=== PATIENT | female | born 2000 | race Two or more races ===

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

== ENCOUNTER 2018-01-11 15:48 | Emergency (ER) | payer OTHER ==
[2018-01-11 15:59] VITALS: RESP 18; TEMP 98.3; BMI 32.3
--- NOTE | 2018-01-11 16:06 | ED PDOC ---
Arrival/HPI - General Historian: Patient - History of Present Illness Narrative History of Present Illness (Text): 01/11/18 16:02 17yo female with no pmhx who present with complaint nausea, nonbloody/bilious vomiting x2 and diarrhea x 1 since early this morning. Patient states everyone in her house had similar symptom. States she wasn't able to keep down the cracker and soda she had earlier. She denies abdominal pain, fever, chills, urinary symptoms, melena, hematemesis, hematuira, chest pain, any other complaint. <Diru,Happiness A - Last Filed: 01/11/18 17:41> Past Medical History - Provider Review Nursing Documentation Reviewed: Yes <Diru,Happiness A - Last Filed: 01/11/18 17:41> Family/Social History - Physician Review Nursing Documentation Reviewed: Yes Family/Social History: Unknown Family HX <Diru,Happiness A - Last Filed: 01/11/18 17:41> Allergies/Home Meds <Diru,Happiness A - Last Filed: 01/11/18 17:41> <TolerBradford thornton - Last Filed: 01/11/18 19:01> Allergies/Adverse Reactions: Allergies No Known Allergies Allergy (Verified 01/11/18 16:07) Review of Systems - Physician Review All systems were reviewed & negative as marked: Yes - Review of Systems Constitutional: Normal Eyes: Normal ENT: Normal Respiratory: Normal Cardiovascular: Normal Gastrointestinal: Nausea, Vomiting. absent: Abdominal Pain, Constipation, Diarrhea, Hematochezia, Hematemesis Genitourinary Female: Normal Musculoskeletal: Normal Skin: Normal Neurological: Normal Endocrine: Normal Hemo/Lymphatic: Normal Psychiatric: Normal <Diru,Happiness A - Last Filed: 01/11/18 17:41> Physical Exam Vital Signs Reviewed: Yes Vital Signs Temp Pulse Resp BP Pulse Ox 01/11/18 15:54 98.3 F 86 18 93/44 L 100 Temperature: Afebrile Blood Pressure: Normal Pulse: Regular Respiratory Rate: Normal Appearance: Positive for: Well-Appearing, Non-Toxic, Comfortable Pain Distress: None Mental Status: Positive for: Alert and Oriented X 3 - Systems Exam Head: Present: Atraumatic, Normocephalic Pupils: Present: PERRL Extroacular Muscles: Present: EOMI Conjunctiva: Present: Normal Mouth: Present: Moist Mucous Membranes Neck: Present: Normal Range of Motion Respiratory/Chest: Present: Clear to Auscultation, Good Air Exchange. No: Respiratory Distress, Accessory Muscle Use Cardiovascular: Present: Regular Rate and Rhythm, Normal S1, S2. No: Murmurs Abdomen: Present: Normal Bowel Sounds, Other (Soft). No: Tenderness, Distention, Peritoneal Signs, Rebound, Guarding, McBurney's Point Tender, Rovsing's Sign Present Back: Present: Normal Inspection Upper Extremity: Present: Normal Inspection. No: Cyanosis, Edema Lower Extremity: Present: Normal Inspection. No: Edema Neurological: Present: GCS=15, CN II-XII Intact, Speech Normal Skin: Present: Warm, Dry, Normal Color. No: Rashes Psychiatric: Present: Alert, Oriented x 3, Normal Insight, Normal Concentration <Diru,Happiness A - Last Filed: 01/11/18 17:41> Vital Signs Temp Pulse Resp BP Pulse Ox 01/11/18 17:26 76 18 102/78 98 01/11/18 15:54 98.3 F 86 18 93/44 L 100 <Tolerico,Bradford - Last Filed: 01/11/18 19:01> Medical Decision Making ED Course and Treatment: 01/11/18 17:41 PT present to ED for stated history. she was hemodynamically stable and in no distress in ED. Labs 1L NS, Zofran UA will reassess On r evaluation pt was not in any distress. She was able to tolerate PO challenge. Lab was unremarkable. She had small Leuk in her UA without WBC and with epithelial cells likely contaminated. She was DC and advised to follow BRAT diet and her PMD. TRT ED for any worsening symptoms. <Diru,Happiness A - Last Filed: 01/11/18 17:41> - Lab Interpretations Lab Results: 01/11/18 16:07 01/11/18 16:07 Lab Results 01/11/18 16:07: Sodium 138, Potassium 4.4, Chloride 105, Carbon Dioxide 26, Anion Gap 11, BUN 18, Creatinine 0.6 L, Est GFR ( Amer) > 60, Est GFR (Non-Af Amer) > 60, Random Glucose 97, Calcium 9.2, Magnesium 1.7, Total Bilirubin 0.9, AST 32, ALT 34, Alkaline Phosphatase 64, Total Protein 7.3, Albumin 4.1, Globulin 3.2, Albumin/Globulin Ratio 1.3, Lipase 18 L 01/11/18 16:07: WBC 7.9, RBC 4.94, Hgb 14.4, Hct 42.2, MCV 85.4, MCH 29.1, MCHC 34.1, RDW 12.7, Plt Count 183, MPV 10.7, Gran % 89.8 H, Lymph % (Auto) 5.5 L, [place] % (Auto) 4.6, Eos % (Auto) 0.1 L, Baso % (Auto) 0.0, Gran # 7.08 H, Lymph # (Auto) 0.4 L, [place] # (Auto) 0.4, Eos # (Auto) 0.0, Baso # (Auto) 0.00 01/11/18 15:50: Urine Color yellow, Urine Appearance Clear, Urine pH 6.0, Ur Specific [place] >= 1.030, Urine Protein Negative, Urine Glucose (UA) Negative, Urine Ketones Negative, Urine Blood Negative, Urine Nitrate Negative, Urine Bilirubin Negative, Urine Urobilinogen 0.2, Ur Leukocyte Esterase Small H, Urine RBC TEST NOT PERFORMED, Urine WBC 2 - 5, Ur Epithelial Cells Many 01/11/18 04:45: PT 14.0 H, INR 1.22, APTT 30.9 - Medication Orders Current Medication Orders: Discontinued Medications Sodium Chloride (Sodium Chloride 0.9%) 1,000 mls @ 1,000 mls/hr IV .Q1H STA Stop: 01/11/18 17:06 Last Admin: 01/11/18 16:20 Dose: 1,000 mls/hr eMAR Start Stop Document 01/11/18 16:20 GMD (Rec: 01/11/18 17:20 GMD [id number]) Intravenous Solution Start Date 01/11/18 Start Time 16:20 End Date 01/11/18 End time 17:20 Total Infusion Time 60 Ondansetron HCl (Zofran Inj) 4 mg IVP STAT STA Stop: 01/11/18 16:08 Last Admin: 01/11/18 16:20 Dose: 4 mg IVP Administration Document 01/11/18 16:20 GMD (Rec: 01/11/18 17:20 GMD [id number]) Charges for Administration # of IVP Administrations 1 <Bradford Esquivel - Last Filed: 01/11/18 19:01> - PA / CROCHETER HAND / Resident Statement / has reviewed & agrees with the documentation as recorded. <Bradford Esquivel - Last Filed: 01/11/18 19:01> Disposition/Present on Arrival - Present on Arrival Any Indicators Present on Arrival: No History of DVT/PE: No History of Uncontrolled Diabetes: No Urinary Catheter: No History of Decub. Ulcer: No History Surgical Site Infection Following: None - Disposition Have Diagnosis and Disposition been Completed?: Yes Disposition Time: 17:15 Patient Plan: Discharge <Acacia Mijares - Last Filed: 01/11/18 17:41> <Bradford Esquivel - Last Filed: 01/11/18 19:01> - Disposition Diagnosis: Vomiting Disposition: HOME/ ROUTINE Condition: STABLE Discharge Instructions (ExitCare): Nausea and Vomiting, Adult Additional Instructions: Follow BRAT diet and follow up with your Doctor Return to ED for any new or worsening symptoms Prescriptions: Ondansetron ODT [Zofran ODT] 4 mg PO Q6 #7 odt Referrals: Clover Bauer MD [Medical Doctor] - Follow up with primary
[2018-01-11] MEDS ORDERED: Sodium Chloride 0.9% 1,000 ML IV STA (16:07)
[2018-01-11 16:15] LABS: URINE BILIRUBIN NEGATIVE (NEGATIVE); URINE BLOOD NEGATIVE (NEGATIVE); URINE GLUCOSE (UA) NEGATIVE (NEGATIVE); URINE LEUKOCYTE ESTERASE SMALL Leu/uL (NEGATIVE); URINE PROTEIN NEGATIVE mg/dL (<30 mg/dL); URINE UROBILINOGEN 0.2 E.U./dL (<1 E.U./dL)
[2018-01-11 16:20] LABS: URINE APPEARANCE CLEAR (CLEAR)
[2018-01-11 16:31] LABS: URINE EPITHELIAL CELLS MANY /hpf (0-5)
[2018-01-11 16:51] LABS: EOS % 0.1 % (1.5-5.0); GRAN # 7.08 (1.4-6.5); GRAN % 89.8 % (50.0-68.0); HEMOGLOBIN 14.4 g/dL (12.0-16.0); LYMPH # 0.4 (1.2-3.4); LYMPH % 5.5 % (22.0-35.0); MEAN CELL VOLUME 85.4 fl (80.0-105.0); MEAN CORPUSCULAR HEMOGLOBIN 29.1 pg (25.0-35.0); MEAN CORPUSCULAR HGB CONC 34.1 g/dl (31.0-37.0); MEAN PLATELET VOLUME 10.7 fl (7.0-11.0); MONO # 0.4 (0.1-0.6); MONO % 4.6 % (1.0-6.0); RBC 4.94 10^6/uL (3.5-6.1); RED CELL DISTRIBUTION WIDTH 12.7 % (11.5-14.5); WHITE BLOOD COUNT 7.9 10^3/uL (4.5-11.0)
[2018-01-11 17:00] LABS: INR 1.22
[2018-01-11 17:01] LABS: PARTIAL THROMBOPLASTIN TIME 30.9 Seconds (25.1-36.5)
[2018-01-11 17:03] LABS: ALB/GLOB RATIO 1.3 (1.1-1.8); ALBUMIN 4.1 g/dL (3.0-4.8); ALT/SGPT 34 U/L (7-56); AST/SGOT 32 U/L (14-36); BLOOD UREA NITROGEN 18 mg/dL (7-21); CALCIUM 9.2 mg/dL (8.4-10.5); GFR NON-AFRICAN AMERICAN > 60; LIPASE 18 U/L (23-300)
[2018-01-11 17:27] VITALS: BP 102/78; PULSE 76; O2SAT 98
== END 2018-01-11 17:27 | disposition home or self-care (01) ==
LOC: ED 15:48
DX: R11.10 Vomiting, unspecified (principal)
CPT/HCPCS: 80053; 81001; 83690; 83735; 85025; 85610; 85730; 87086; 96361; 96374; 99284; J2405; J7030

== ENCOUNTER 2018-04-12 00:33 | Emergency (ER) | payer SELFPAY ==
[2018-04-12 00:34] VITALS: BMI 32.3
--- NOTE | 2018-04-12 01:24 | ED PDOC ---
Arrival/HPI - General Chief Complaint: Chest Pain Time Seen by Provider: 04/12/18 01:10 Historian: Patient - History of Present Illness Narrative History of Present Illness (Text): 04/12/18 01:24 Sanchez Abbasi is a 18 year old female, with no significant past medical history, who presents to the Emergency department complaining of chest pain. 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 Patient sta sourav today she has been experiencing intermittent chest discomfort, worsened with movement while at work, but denies any currently. Patient denies any fever, chills, shortness of breath, nausea, vomiting, diarrhea, urinary symptoms, back pain, neck pain, headache, dizziness, or any other complaints. Symptom Onset: Gradual Symptom Course: Unchanged Activities at Onset: Light Context: Home Past Medical History - Provider Review Nursing Documentation Reviewed: Yes - Infectious Disease Hx of Infectious Diseases: None - Psychiatric Hx Substance Use: No - Surgical History Other/Comment: oral surgery - Anesthesia Hx Anesthesia Reactions: No Hx Malignant Hyperthermia: No Family/Social History - Physician Review Nursing Documentation Reviewed: Yes Family/Social History: Unknown Family HX Smoking Status: Never Smoked Hx Alcohol Use: No Hx Substance Use: No Allergies/Home Meds Allergies/Adverse Reactions: Allergies No Known Allergies Allergy (Verified 01/11/18 16:07) Home Medications: Home Meds Medication Instructions Recorded Confirmed No Known Home Med 04/12/18 04/12/18 Review of Systems - Physician Review All systems were reviewed & negative as marked: Yes - Review of Systems Constitutional: Normal. absent: Fevers Eyes: Normal ENT: Normal Respiratory: Normal. absent: SOB, Cough Cardiovascular: Chest Pain Gastrointestinal: Normal. absent: Abdominal Pain, Diarrhea, Nausea, Vomiting Genitourinary Female: Normal. absent: Dysuria, Frequency, Hematuria, Urine Output Changes Musculoskeletal: Normal. absent: Back Pain, Neck Pain Skin: Normal. absent: Rash Neurological: Normal. absent: Headache, Dizziness Endocrine: Normal Hemo/Lymphatic: Normal Psychiatric: Normal Physical Exam Vital Signs Reviewed: Yes Temperature: Afebrile Blood Pressure: Normal Pulse: Regular Respiratory Rate: Normal Appearance: Positive for: Well-Appearing, Non-Toxic, Comfortable Pain Distress: None Mental Status: Positive for: Alert and Oriented X 3 - Systems Exam Head: Present: Atraumatic, Normocephalic Pupils: Present: PERRL Extroacular Muscles: Present: EOMI Conjunctiva: Present: Normal Mouth: Present: Moist Mucous Membranes Neck: Present: Normal Range of Motion Respiratory/Chest: Present: Clear to Auscultation, Good Air Exchange. No: Respiratory Distress, Accessory Muscle Use Cardiovascular: Present: Regular Rate and Rhythm, Normal S1, S2. No: Murmurs Abdomen: No: Tenderness, Distention, Peritoneal Signs Back: Present: Normal Inspection Upper Extremity: Present: Normal Inspection. No: Cyanosis, Edema Lower Extremity: Present: Normal Inspection. No: Edema Neurological: Present: GCS=15, CN II-XII Intact, Speech Normal Skin: Present: Warm, Dry, Normal Color. No: Rashes Psychiatric: Present: Alert, Oriented x 3, Normal Insight, Normal Concentration Medical Decision Making ED Course and Treatment: 04/12/18 01:24 Impression: 18 year old female complaining of chest discomfort, worsened with movement. Plan: -- EKG -- CXR -- Reassess and disposition Progress Notes: Reviewed EKG, NSR at [address]-segment elevations or depressions, no T-wave inversions, normal intervals. 04/12/18 02:39 Chest X-ray reviewed, shows no acute processes. - Scribe Statement The provider has reviewed the documentation as recorded by the Valdemar Horta Provider Scribe Attestation: All medical record entries made by the Scribe were at my direction and personally dictated by me. I have reviewed the chart and agree that the record accurately reflects my personal performance of the history, physical exam, medical decision making, and the department course for this patient. I have also personally directed, reviewed, and agree with the discharge instructions and disposition. Disposition/Present on Arrival - Present on Arrival Any Indicators Present on Arrival: No History of DVT/PE: No History of Uncontrolled Diabetes: No Urinary Catheter: No History of Decub. Ulcer: No History Surgical Site Infection Following: None - Disposition Have Diagnosis and Disposition been Completed?: Yes Diagnosis: Musculoskeletal chest pain Disposition: HOME/ ROUTINE Disposition Time: 02:43 Patient Plan: Discharge Condition: GOOD Discharge Instructions (ExitCare): Chest Pain (ED) Additional Instructions: Avoid lifting any heavy objects/avoid any strenuous physical activity next few days minimum/follow up with your doctor this week Forms: [employer] (Dutch), WORK NOTE
[2018-04-12 01:28] VITALS: TEMP 97.9
[2018-04-12 03:07] VITALS: BP 104/56; PULSE 77; RESP 20; O2SAT 99
--- NOTE | 2018-04-12 09:28 | RAD ---
HISTORY: chest pain COMPARISON: None available TECHNIQUE: Chest, one view. FINDINGS: LUNGS: No focal consolidation. Please note that chest x-ray has limited sensitivity for the detection of pulmonary masses. PLEURA: No significant pleural effusion identified. No definite pneumothorax . CARDIOVASCULAR: Heart size appears within limits. No significant atherosclerotic calcification present. OSSEOUS STRUCTURES: No acute osseous abnormality identified. VISUALIZED UPPER ABDOMEN: Unremarkable. OTHER FINDINGS: None. IMPRESSION: No focal consolidation.
--- NOTE | 2018-04-13 07:47 | CARD ---
APPROVED REPORT Date of service: 04/12/2018 EKG Measurement Heart [id number] <Conclusion> Normal sinus rhythm Normal ECG
== END 2018-04-12 03:10 | disposition home or self-care (01) ==
LOC: ED 00:33
DX: R07.89 Other chest pain (principal)